=== PATIENT | female | born 1950 | race Caucasian/White ===

== ENCOUNTER 2017-10-23 19:58 | Emergency (ER) | payer MEDICARE, OTHER ==
[~2017-10-23] VITALS: Ht 170.2 cm; Wt 59.8 kg
[2017-10-23 21:01] LABS: MEAN CORPUSCULAR HEMOGLOBIN 31.9 pg (27.0-34.8); MEAN CORPUSCULAR HGB CONC 33.8 g/dL (32.4-35.8); MEAN CORPUSCULAR VOLUME 94.5 fL (80-100); MEAN PLATELET VOLUME 8.1 fL (7.4-10.4); PLATELET COUNT 243 x10^3/uL (130-400); RED CELL DISTRIBUTION WIDTH 15.6 % (9.6-15.2)
[2017-10-23 21:12] LABS: ALANINE AMINOTRANSFERASE 29 U/L (12-78); ALBUMIN 4.3 g/dL (3.4-5.0); ANION GAP 10 mmol/L (5-15); CALCIUM 9.3 mg/dL (8.5-10.1); CHLORIDE 110 mmol/L (98-107); SALICYLATE LEVEL 3.6 mg/dL (2.8-20.0)
[2017-10-23 21:15] LABS: ALKALINE PHOSPHATASE 79 U/L (45-117); BILIRUBIN,TOTAL 0.4 mg/dL (0.2-1.0); CREATININE 1.02 mg/dL (0.55-1.02); TOTAL PROTEIN 7.6 g/dL (6.4-8.2)
[2017-10-23 21:17] LABS: ACETAMINOPHEN < 2 mcg/mL (10-30)
[2017-10-23 21:22] LABS: MD YES
[2017-10-23 21:38] LABS: LYMPH#(MANUAL) 4.06 x10^3/uL (1-3.4); LYMPHS% (MANUAL) 32 % (22-44); MONOS#(MANUAL) 0.38 x10^3/uL (0.3-2.7); MONOS% (MANUAL) 3 % (2-9); REACTIVE LYMPHS # (MANUAL) 4.19 x10^3/uL (0-0); REACTIVE LYMPHS % (MANUAL) 33 % (0-0); SEG#(MANUAL) 4.06 x10^3/uL (1.8-6.8); SEGS% (MANUAL) 32 % (42-75)
[2017-10-23 21:39] LABS: AMPHETAMINE SCREEN, URINE Negative (Negative); BARBITURATE SCREEN, URINE Negative (Negative); BENZODIAZEPINE SCREEN, URINE Negative (Negative); CANNABINOID SCREEN, URINE Negative (Negative); COCAINE SCREEN, URINE Negative (Negative); METHADONE SCREEN, URINE Negative (Negative); OPIATE SCREEN, URINE Negative (Negative)
[2017-10-23 21:39] LABS: ANISOCYTOSIS 1+
[2017-10-23 21:40] LABS: <PLATELET ESTIMATE> ADEQUATE; <PLT MORPHOLOGY> NORMAL PLT MORPH
[2017-10-24] MEDS ORDERED: IBUPROFEN 200 MG TABLET PO ONE (02:00)
[2017-10-24] MEDS ORDERED: IBUPROFEN 200 MG TABLET ONE (02:21)
[2017-10-24 05:42] VITALS: BP 100/53
== END 2017-10-24 06:07 | disposition home or self-care (01) ==
LOC: ED 23:59
DX: F10.220 Alcohol dependence with intoxication, uncomplicated (principal); I10 Essential (primary) hypertension; E78.00 Pure hypercholesterolemia, unspecified; F17.200 Nicotine dependence, unspecified, uncomplicated; Z79.899 Other long term (current) drug therapy
CPT/HCPCS: 36415; 80053; 80307; 80329; 85025; 99284; G0480

== ENCOUNTER 2019-09-29 15:57 | Outpatient (CLI) | payer MEDICARE ==
[2019-09-29] MEDS ORDERED: OMNIPAQUE 350 MG/ML, 100ML BOTTLE ONE (17:02)
== END 2019-09-29 23:59 | disposition home or self-care (01) ==
LOC: RAD 15:57
PROVIDERS: ATTEND Family Medicine
DX: K86.1 Other chronic pancreatitis (principal); N26.1 Atrophy of kidney (terminal)
CPT/HCPCS: 74177; Q9967

== ENCOUNTER 2019-11-26 11:50 | Emergency (ER) | payer MEDICARE ==
[~2019-11-26] VITALS: Ht 165.1 cm; Wt 64.5 kg
[2019-11-26 14:15] VITALS: BP 156/89
[2019-11-26 14:47] LABS: MEAN CORPUSCULAR HEMOGLOBIN 32.9 pg (27.0-34.8); MEAN CORPUSCULAR HGB CONC 33.1 g/dL (32.4-35.8); MEAN CORPUSCULAR VOLUME 99.3 fL (80-100); MEAN PLATELET VOLUME 8.1 fL (7.4-10.4); PLATELET COUNT 241 x10^3/uL (130-400); RED BLOOD COUNT 4.29 x10^6/uL (3.82-5.3); RED CELL DISTRIBUTION WIDTH 15.4 % (9.6-15.2)
[2019-11-26 14:59] LABS: ALBUMIN 4.1 g/dL (3.4-5.0); ANION GAP 7 mmol/L (5-15); CALCIUM 9.2 mg/dL (8.5-10.1); CHLORIDE 110 mmol/L (98-107)
--- NOTE | 2019-11-26 15:00 | NUR ---
PT AMBULATED TO RESTROOM WITH STEADY GAIT TO PROVIDE URINE SAMPLE. UA COLLECTED AND SENT TO LAB. PT TAKEN TO US.
[2019-11-26 15:04] LABS: ALANINE AMINOTRANSFERASE 26 U/L (12-78); ALKALINE PHOSPHATASE 88 U/L (45-117); BILIRUBIN,TOTAL 0.6 mg/dL (0.2-1.0); CREATININE 0.98 mg/dL (0.55-1.02); TOTAL PROTEIN 7.5 g/dL (6.4-8.2)
[2019-11-26 15:31] LABS: MD YES
[2019-11-26 15:34] LABS: BANDS%(MANUAL) 1 % (0-7); BASOS% (MANUAL) 1 % (0-1); LYMPH#(MANUAL) 5.61 x10^3/uL (1-3.4); LYMPHS% (MANUAL) 59 % (22-44); MONOS#(MANUAL) 0.57 x10^3/uL (0.3-2.7); MONOS% (MANUAL) 6 % (2-9); SEG#(MANUAL) 3.14 x10^3/uL (1.8-6.8); SEGS% (MANUAL) 33 % (42-75)
[2019-11-26 15:40] LABS: MICROSCOPIC NOT IND
[2019-11-26 15:49] LABS: ANISOCYTOSIS 1+
[2019-11-26 15:50] LABS: <PLATELET ESTIMATE> ADEQUATE; <PLT MORPHOLOGY> NORMAL PLT MORPH; TEAR DROPS 1+
--- NOTE | 2019-11-26 15:56 | NUR ---
ALL RESULTS ARE BACK AT THIS TIME. CHART UP FOR RECHECK.
--- NOTE | 2019-11-26 16:25 | NUR ---
PROVIDER AT BEDSIDE TO UPDATE PT ON POC.
== END 2019-11-26 16:36 | disposition home or self-care (01) ==
LOC: ED 14:21
DX: R10.31 Right lower quadrant pain (principal); R11.0 Nausea; R10.2 Pelvic and perineal pain; I10 Essential (primary) hypertension; E78.5 Hyperlipidemia, unspecified; F17.200 Nicotine dependence, unspecified, uncomplicated
CPT/HCPCS: 36415; 76830; 80053; 81003; 83690; 85025; 99284